=== PATIENT | female | born 1935 | race Caucasian/White ===

== ENCOUNTER → 2023-04-09 13:50 | Outpatient (REF) | payer MEDICARE, OTHER, SELFPAY ==
--- NOTE | 2023-04-09 14:02 | CA_ITS ---
Transthoracic Echocardiogram Patient (Last, First, Middle): Griselda Hunter, Gender: Female Date of : 1935 Age: 87 Procedure Date: 04/09/2023 Procedure Type: Transthoracic Echocardiogram Location: OP Height: 154.94 cm Weight: 45.36 kg BSA: 1.41 m2 Heart Rate: 77 bpm BP: 100 / 60 mmHg [employer] Project Engineer: HUDSON Referring MD: Kenyatta Brown MD Symptoms: CARDIAC MURMUR DYSPNEA Study Quality: Technically Difficult ECG Rhythm: Sinus Conclusions: - The left ventricular systolic function is hyperdynamic. The visually estimated ejection fraction is >70%. 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 There is no evidence of interatrial shunt by color Doppler. - There is mild calcification of the aortic valve. - No obvious valvular pathology seen on this study. - Mild pulmonary hypertension is present. Findings Left Ventricle Normal left ventricular cavity size. There is mildly increased left ventricular wall thickness. The left ventricular systolic function is hyperdynamic. The visually estimated ejection fraction is >70%. There is no evidence of regional wall motion abnormalities. Evidence suggests grade I (mild) diastolic dysfunction. Right Ventricle The right ventricle was not well visualized. There is low normal right ventricular systolic function. Atria Both atria are normal in size. 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 There is no evidence of interatrial shunt by color Doppler. Aortic Valve There is a normal trileaflet aortic valve. There is mild calcification of the aortic valve. There is no aortic valve stenosis. There is no aortic valve regurgitation. Mitral Valve The mitral valve appears normal. There is no mitral valve regurgitation. There is no mitral valve stenosis. Pulmonic Valve The pulmonic valve is likely normal. There is trace pulmonic valve regurgitation. Tricuspid Valve Normal tricuspid valve structure. There is mild tricuspid valve regurgitation. Mild pulmonary hypertension is present. Great Vessels The asc aorta is normal in size. Venous The inferior vena cava is normal in size and collapses greater than 50% with inspiration. Pericardium/Pleural There is no evidence of pericardial effusion. Prior Study Comparison No prior study available for comparison. Recommendations, Care & Conclusions No obvious valvular pathology seen on this study. Measurements 2D Linear Measurements IVSd: 1.03 0.6-0.9/0.6-1.0 cm LVIDd: 3.42 3.9-5.3/4.2-5.9 cm LVIDd Index: 2.43 2.4-3.2/2.2-3.1 cm/m2 LVIDs: 1.98 2.0-3.6 cm LVPWd: 1.09 0.7-1.1 cm LA Diam: 3.00 2.7-3.8/3.0-4.0 cm LAIDs Index: 2.13 1.5-2.3 cm/m2 LV Mass: 135.23 67-162/88-224 g LV Mass Index: 95.91 43-95/49-115 g/m2 LVOT Diam: 2.00 3.0+(-)1.3 cm 2D Systolic Function EF 4C: 79.60 >55% EF 2C: 73.50 >55% EF BiP: 77.10 >55% Mitral Valve MV Pk E: 0.86 MV PK A: 1.18 MV Decel Time: 310.00 E/A: 0.70 E'Lateral: 5.87 E'Medial: 4.79 E/E' Med: 18.00 E/E' Lat: 14.70 PHT: 91.00 MVA PHT: 2.42 Decel Bracken: 2.79 Aortic Valve AoV Pk Herbie: 1.40 AoV Mn Herbie: 1.03 AoV VTI: 0.30 AoV Pk Grad: 8.00 Aov Mn Grad: 5.00 CHELSEA Cont.VTI: 3.23 LVOT LVOT Pk Herbie: 1.30 LVOT Mn Herbie: 0.95 LVOT VTI: 0.31 LVOT Pk Grad: 7.00 LVOT Mn Grad: 4.00 LVOT Diam: 2.00 LVOT Area: 3.14 Diastolic Function MV Pk E: 0.86 MV Pk A: 1.18 E/A: 0.70 E'Medial: 4.79 E/E' Med: 18.00 E' Laterial: 5.87 E/E' Lat: 14.70 Right Ventricle TAPSE (mm): 21.20 TVS' Herbie: 11.10 Tricuspid Valve TR Pk Herbie: 3.04 TR Pk Grad: 37.00 RA Press: 3.00 RVSP: 46.00 Great Vessels Aorta Sinus of Valsalva: 3.40 2.0-3.5 cm Ao Asc: 3.40 2.1-3.4 cm Pulmonary Valve PV Pk Herbie: 1.19 Peak PV Grad: 6.00 Updated in Other Vendor System with Status of Final Guru Perez MD electronically signed on 04/09/2023 3:48:52 PM with status of Final
== END ==
LOC: HO.CARD 13:50
PROVIDERS: Visit Provider Internal Medicine
DX: R06.00 Dyspnea, unspecified (principal)
CPT/HCPCS: 93306

== ENCOUNTER → 2023-04-09 14:02 | Outpatient (BNV) | payer MEDICARE, OTHER, SELFPAY | PROVIDERS: Visit Provider Internal Medicine | DX: I36.1 Nonrheumatic tricuspid (valve) insufficiency (principal); I35.8 Other nonrheumatic aortic valve disorders | CPT/HCPCS: 93306 ==